=== PATIENT | male | born 1950 | race American Indian/Alaskan Native ===

== ENCOUNTER 2020-02-21 07:05 | Day surgery (SDC) | payer OTHER ==
[~2020-02-21 07:05] MED LIST: MIDAZOLAM 2 MG/2 ML INJ IV NR; SODIUM CHLORIDE 0.9% 1000 ML 1,000 ML IV SCH; ceFAZolin/Water 2 GM/20 ML 2 GM/20 ML SYRINGE IV NR; fentaNYL 100 MCG/2 ML INJ IV NR
[2020-02-21 07:40] LABS: Hematocrit 29.3 % (35.5-45.6); Hemoglobin 9.4 gm/dl (11.8-15.2); Mean Corpuscular HGB Conc 32 % (32-34); Mean Corpuscular Volume 84 fl (84-94); Platelet Count 325 K/mm3 (140-440); Red Blood Count 3.48 M/mm3 (3.65-5.03); Red Cell Distribution Width 19.4 % (13.2-15.2)
[2020-02-21] MEDS ORDERED: rifAMPin 600 MG VIAL ONE (07:41)
[2020-02-21] MEDS ORDERED: BUPIVACAINE/PF (0.5%) 5 MG/1 ML 10 ML VIAL INFILTRATI ONE ×2 (07:41→09:30)
[2020-02-21] MEDS ORDERED: HEPARIN 10,000 UNITS/10 ML VIAL ONE (07:41)
[2020-02-21] MEDS ORDERED: SODIUM CHLORIDE 0.9% 500 ML 500 ML ONE (07:42)
--- NOTE | 2020-02-21 07:46 | Anesthesia Day of Surgery ---
Anesthesia Day of Surgery - Day of Surgery Patient Examined: Yes Patient H&P Reviewed: Yes Patient is NPO: Yes
--- NOTE | 2020-02-21 07:46 | Anesthesia Consultation ---
Anesthesia Consult and Med Hx - Airway Anesthetic Teeth Evaluation: Dentures, Edentulous ROM Head & Neck: Adequate Mental/Hyoid Distance: Adequate Mallampati Class: Class I Intubation Access Assessment: Good - Pulmonary Exam CTA: Yes - Cardiac Exam Cardiac Exam: RRR - Pre-Operative Health Status ASA Pre-Surgery Classification: ASA3 Proposed Anesthetic Plan: TIVA Nerve Block: Left brachial plexus/supraclavicular - Cardiovascular System Hx Hypertension: Yes - Central Nervous System Hx Psychiatric Problems: No - Endocrine Hx Renal Disease: Yes (Dialysis) Hx End Stage Renal Disease: Yes - Other Systems Hx Cancer: No
[2020-02-21] MEDS ORDERED: MIDAZOLAM 2 MG/2 ML INJ ONE ×2 (07:54→08:46)
[2020-02-21] MEDS ORDERED: fentaNYL 100 MCG/2 ML INJ ONE (07:54)
[2020-02-21] MEDS ORDERED: ROPIVACAINE/PF (0.5%) 5 MG/1 ML 30 ML VIAL ONE (07:54)
[2020-02-21 07:57] LABS: Calcium 8.6 mg/dL (8.4-10.2)
[2020-02-21] MEDS ORDERED: propofoL 200 MG/20 ML VIAL IV ONE ×2 (08:46)
[2020-02-21] MEDS ORDERED: HYDROmorphone 1 MG/1 ML INJ ONE (08:46)
[2020-02-21] MEDS ORDERED: LIDOCAINE MPF (2%) 20 MG/1 ML VIAL 5 ML ONE (08:47)
--- NOTE | 2020-02-21 08:50 | Event Note ---
Date: 02/21/20 Block Note Left Brachial Plexus(Supraclavicular) After time out, the area was prepped and draped in the usual fashion. Iv Sedation, Monitors with O2. Brachial plexus identified and verified with 0.5 mAMP stimulation with 20G Stimuplex. 20 ml of 0.5 % Ropivacaine injected in 5 ml increments and negative aspiration for blood. VSS throughout. Image placed in chart. Pt tolerated procedure well. Versed 2 mg and Fentanyl 100 mcg iv given for procedure
[2020-02-21] MEDS ORDERED: SODIUM CHLORIDE 0.9% 250ML 250 ML ONE (09:05)
[2020-02-21] MEDS ORDERED: HEPARIN 10,000 UNITS/10 ML VIAL IR ONE (09:26)
[2020-02-21] MEDS ORDERED: SODIUM CHLORIDE 0.9% 500 ML IVPB IRRIGATION ONE (09:27)
[2020-02-21] MEDS ORDERED: SODIUM CHLORIDE 0.9% IRR 1,500 ML BOTTLE IR ONE (09:28)
[2020-02-21] MEDS ORDERED: SODIUM CHLORIDE 0.9% 250 ML IVPB IR ONE (09:28)
[2020-02-21] MEDS ORDERED: rifAMPin 600 MG VIAL IV ONE (09:28)
[2020-02-21] MEDS ORDERED: fentaNYL 100 MCG/2 ML INJ IV PRN (10:00)
[2020-02-21] MEDS ORDERED: PHENYLEPHRINE/NS 1,000 MCG/10 ML SYRINGE (OR USE) IV ONE (10:18)
--- NOTE | 2020-02-21 10:54 | Short Stay Summary ---
Short Stay Documentation Date of service: 02/21/20 Narrative H&P: See H&P - History H&P: obtained from office - Allergies and Medications Current Medications: Allergies No Known Allergies Allergy (Unverified 02/19/20 15:46) Home Medications Medication Instructions Recorded Confirmed Last Taken Type AtorvaSTATin [Lipitor] 20 mg PO QHS 02/19/20 02/21/20 02/20/20 16:00 History Bicalutamide 50 mg PO DAILY 02/19/20 02/21/20 02/21/20 05:30 History Metoprolol [Lopressor] 100 mg PO DAILY 02/19/20 02/21/20 02/21/20 05:30 History RX: Aspirin [Aspirin BABY CHEW TAB] 81 mg PO DAILY 02/19/20 02/21/20 02/20/20 08:00 History RX: Ferrous Sulfate [Iron 325 MG] 325 mg PO DAILY 02/19/20 02/21/20 02/20/20 08:00 History RX: Hydralazine HCl 25 mg PO BID 02/19/20 02/21/20 02/20/20 20:00 History RX: Isosorbide Dinitrate 30 mg PO DAILY 02/19/20 02/21/20 02/21/20 08:00 History RX: Sodium Bicarbonate 650 mg PO BID 02/19/20 02/21/20 02/20/20 20:00 History RX: lisinopriL [Zestril TAB] 5 mg PO DAILY 02/19/20 02/21/20 02/20/20 05:30 History dilTIAZem CD [Cardizem Cd] 120 mg PO DAILY 02/19/20 02/21/20 02/21/20 05:30 History Active Medications Fentanyl (Sublimaze) 50 mcg IV Q5MIN PRN PRN Reason: Pain , Severe (7-10) Stop: 02/21/20 15:00 Cefazolin Sodium (Ancef/Sterile Water 2 Gm/20 Ml) 2 gm in 20 mls @ 80 mls/hr IV PREOP NR; Protocol Stop: 02/21/20 23:00 Sodium Chloride (Nacl 0.9% 1000 Ml) 1,000 mls @ 42 mls/hr IV DIRECT ARAMIS Last Admin: 02/21/20 07:50 Dose: 42 mls/hr Documented by: - Brief post op/procedure progress note Date of procedure: 02/21/20 Pre-op diagnosis: End Stage Renal Disease Post-op diagnosis: same Procedure: Creation of Left Brachial Artery to To Left Axillary Vein Arteriovenous Graft with 7 mm Bovine Artegraft Anesthesia: regional, local Findings: Palpable thrill in the arteriovenous graft and palpable left radial pulse at the completion of the case. Surgeon: GRAEME NO Estimated blood loss: minimal Pathology: none Condition: stable - Disposition Condition at discharge: Good Disposition: DC-01 TO HOME OR SELFCARE Short Stay Discharge Plan Activity: other (No heavy lifting with left arm for 2 weeks.) Wound: open to air, keep clean and dry, other (Okay to wash the wound with soap and water but do not soak the incision in water for 2 weeks.) Follow up with: GRAEME NO MD [Staff Physician] - 14 Days Prescriptions: HYDROcodone/APAP 7.5-325 [[place] 7.5/325] 1 each PO Q6HR PRN #40 tablet PRN Reason: Pain
--- NOTE | 2020-02-21 11:05 | Operative Report ---
Operative Report Operative Report: Date of procedure: 02/21/2020 Pre-operative diagnosis: End-Stage Renal Disease Post-operative diagnosis: Same Procedure(s): 1. Creation of Left Brachial Artery to Axillary Vein AV Graft with 7 mm Bovine Graft Artergraft Surgeon: Daniel Helms MD Tipple Tender: None Anesthesia: Regional Block/1% Lidocaine Plain EBL: Minimal Counts: Correct Complications: None Condition: Stable Findings: Successful Creation of Left Arm AV Graft Specimen: None Indication: The patient is a 69-year-old male with a history of end-stage renal disease who is currently on hemodialysis through a left internal jugular permacath. He is in need of permanent dialysis access but did not have adequate vein for creation of an AV fistula so he was offered an arteriovenous graft. He was given the risk, benefits, and alternative procedures and consented to the procedure. Description of Procedure: The patient was brought to the operating room and laid in supine position after general endotracheal anesthesia was achieved the left arm was prepped and draped in normal sterile fashion. A longitudinal incision was made on the medial aspect of the arm just proximal to the antecubital crease and carried down to the brachial artery using sharp dissection. The brachial artery was dissected out circumferentially both proximally and distally and controlled with vessel loops. A second incision was created in longitudinal fashion on the medial aspect of the arm just distal to the axillary crease and carried down to the axillary vein using sharp dissection. Axillary vein was dissected out circumferentially and controlled with a vessel loop. I then used a Layla-Wick tunneler to tunnel from the brachial artery incision to the axillary vein incision and then put an 7 mm bovine through the tunnel. I infused with heparinized saline to ensure that it was not twisted or kinked. I put the brachial artery vessel loops on tension controlling the flow and then created an arteriotomy using an 11 blade and Benton scissors. I beveled the graft and created an end-to-side anastomosis using 6-0 Prolene running fashion. I clamped the graft just proximal to the anastomosis and then released the vessel loops restoring flow in the brachial artery. I placed quick clot in incision to achieve hemostasis. I cut the proximal end of the graft to the appropriate length and beveled the graft in preparation for a venous anastomosis. I controlled the axillary vein a Satinsky clamp and created a venotomy using an 11 blade and Benton scissors. I created an end to side anastomosis using a 6-0 Prolene in running fashion. Prior to completing the anastomosis I flushed the graft to ensure there was no thrombus and then completed the anastamosis. I released all clamps allowing flow into the AV graft which had an excellent thrill. I packed the wound with quick clot to achieve hemostasis. I anesthetized both wounds with 0.5% Marcaine and then closed both wounds in 2 layers using 3-0 Vicryl in running fashion in the deep dermal layer and 4-0 Monocryl in running fashion the subcuticular layer. I dressed both wounds with Dermabond. The patient tolerated the procedure well all sponge needle and instrument counts were correct the patient was taken to recovery in stable condition.
[2020-02-21 11:48] VITALS: BP 135/84
--- NOTE | 2020-02-21 13:52 | Post Anesthesia Evaluation ---
- Post Anesthesia Evaluation Patient Participated: Yes Airway Patent: Yes Stable Respiratory Function: Yes Nausea/Vomiting: No Temp > 96.8F: Yes Pain Manageable: Yes Adequeate Hydration: Yes Anesthesia Complications: No
== END 2020-02-21 12:35 | disposition home or self-care (01) ==
LOC: OR 07:05
PROVIDERS: ATTEND Surgery Vascular Surgery
DX: I12.0 Hypertensive chronic kidney disease with stage 5 chronic kidney disease or end stage renal disease (principal); N18.6 End stage renal disease; Z90.49 Acquired absence of other specified parts of digestive tract; Z99.2 Dependence on renal dialysis; Z79.899 Other long term (current) drug therapy; Z98.890 Other specified postprocedural states
CPT/HCPCS: 36415; 36830; 80048; 85027; C1768; J1170; J1644; J2250; J2370; J2704; J2795; J3010; J3490; J7040; J7050; 64450